=== PATIENT | female | born 1970 | race Caucasian/White ===

== ENCOUNTER 2016-10-21 21:20 | Emergency (ER) ==
[2016-10-21] MEDS ORDERED: PHENERGAN IM ONE (22:03)
[2016-10-21] MEDS ORDERED: NUBAIN IM ONE (22:05)
--- NOTE | 2016-10-21 22:11 | PROVIDER DOCUMENTATION ---
HPI-Headache - General Source: patient - History of Present Illness-Headache Headache Location: reports: occipital Quality of Pain: reports: aching Severity: reports: moderate Onset/Duration: reports: this afternoon Timing: reports: still present Headache severity at the maximum: worst of life Headache Exacerbated by:: reports: nothing Associated Symptoms: reports: headache, nausea, vomiting Similar Symptoms Previously?: No Recently seen or treated by another doctor?: No <Althea Sanches - Last Filed: 10/21/16 22:19> <Hong Sosa - Last Filed: 10/21/16 22:58> - General Chief Complaint: Headache Stated Complaint: OWENS, VOMITING Time Seen by Provider: 10/21/16 21:53 Allergies/Adverse Reactions: Patient Allergies Allergy/AdvReac Type Severity Reaction Status Date / Time ibuprofen [From Advil] AdvReac SWELLING Verified 10/21/16 21:31 Home Medications: Home Medication List Medication Instructions Recorded Confirmed Last Taken Type Cetirizine HCl [Zyrtec] 10 mg PO DAILY 10/21/16 10/21/16 10/20/16 History Esomeprazole Magnesium [Nexium] 40 mg PO DAILY 10/21/16 10/21/16 10/20/16 History - History of Present Illness-Headache Nature of Presenting Problem: 45 year old F presents to the ED with a cc of a headache with an onset of 1400. PT states that she too one 200 mg Ibuprofen with no relief. PT states that the headache became worse with nausea and vomiting. PT states that she has vomited at least 20 times. (Althea Sanches) Review of Systems - Adult - REVIEW OF SYSTEMS - ADULT Constitutional: denies: chills, fever Eyes: reports: no symptoms reported Ears, Nose, Mouth & Throat: reports: no symptoms reported Cardiovascular: reports: no symptoms reported Respiratory: reports: no symptoms reported Gastrointestinal: reports: nausea, vomiting. denies: abdominal pain Genitourinary: reports: no symptoms reported Musculoskeletal: reports: no symptoms reported Integumentary: reports: no symptoms reported Neurological: reports: headache/migraines. denies: dizziness/vertigo Psychiatric: reports: no symptoms reported Endocrine: reports: no symptoms reported Hematologic/Lymphatic: reports: no symptoms reported Allergic/Immunologic: reports: no symptoms reported All Other Systems: Reviewed and Negative <Althea Sanches - Last Filed: 10/21/16 22:19> Past History - Adult - PAST MEDICAL HISTORY-ADULT Review of Records: reports: Nursing Assessment Review, Medications Reviewed Major Childhood Illnesses: reports: denies history Psychiatric: reports: depression - PRIOR SURGERIES/PROCEDURES Surgical/Procedure History: reports: EGD, colonoscopy - IMMUNIZATION STATUS Childhood Immunizations: See Nurse Assessment Flu Vaccine: See Nurse Assessment - SOCIAL HISTORY Smoking: non-smoker Substance Use: none/never Alcohol Use Frequency: never <MyronAlthea - Last Filed: 10/21/16 22:19> Physical Exam- Neurological - Physical Exam-Neuro Initial Vital Signs Reviewed: Yes General Appearance: appears well, alert, no apparent distress Head Injury: no evidence of injury Respiratory: chest non-tender, lungs clear, normal breath sounds Cardiovascular: normal peripheral pulses, regular rate, rhythm, no edema 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: normal 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 Exam: normal hearing, normal speech, PERRL Motor/Sensory: no motor deficit, no sensory deficit, no pronator drift (-) Neurologic: tester armature or fields II-XII nml as tested, no motor/sensory deficits Integumentary: normal color, normal turgor, warm/dry Psych/Mental Status: normal mood/affect, normal thought content, normal thought process, oriented x 3 <Althea Sanches - Last Filed: 10/21/16 22:19> Progress <Althea Sanches - Last Filed: 10/21/16 22:19> - CT/MRI 1 CT Study: Head CT Results: nad (rad) <Hong Sosa - Last Filed: 10/21/16 22:58> - PLAN OF CARE/RESULTS Progress/Plan/Lab Results: Orders Category Date Time Status HEAD W/O CONTRAST [CT] Stat Exams 10/21/16 22:07 Taken Nalbuphine [Nubain] Med 10/21/16 22:05 Discontinued 10 mg IM NOW ONE Promethazine [Phenergan] Med 10/21/16 22:03 Discontinued 25 mg IM NOW ONE Vital Signs - 24 hr 10/21/16 21:22 Temperature 97.6 F Pulse Rate 74 Respiratory 18 Rate Blood Pressure 144/95 O2 Sat by Pulse 100 Oximetry (Hong Sosa) Departure <Althea Sanches - Last Filed: 10/21/16 22:19> - Departure Time of Disposition Order: 22:57 Certified Medical Emergency: Emergent <Hong Sosa - Last Filed: 10/21/16 22:58> - Departure DIAGNOSIS: Migraine Qualifiers: Migraine type: without aura Status migrainosus presence: without status migrainosus Intractability: not intractable Qualified Code(s): G43.009 - Migraine without aura, not intractable, without status migrainosus Disposition: HOME 01 Condition: Good Additional Instructions: follow up with PCP ED Follow Up Instructions: You have been treated by a care provider in the Emergency Department. These instructions are being provided to you so you can have an understanding of how to care for yourself upon discharge. Upon discharge from the Emergency Department, you are responsible for making arrangements for follow-up care by a physician of your choice. Take all prescribed medications as directed. Return to the Emergency Department immediately for any new or worsening symptoms. You may call the Physician Referral phone number at [phone] to obtain a list of Physicians who are taking new patients. Referrals: None,PCP [Primary Care Provider] - Attestation - Scribe Verification/Attestation Scribe:: Althea Sanches Acting as Scribe for:: Hong Sosa Scribe documention review:: This chart was documented by a scribe and accurately reflects the service the provider performed and the decisions made by the provider. <Althea Sanches - Last Filed: 10/21/16 22:19> - Physician/ NAVDEEP Attestation Patient care was provided by Advanced Practice Provider:: Yes Advanced Practice Provider:: Hong Sosa Advanced Practice Provider documentation review:: The Mid-level provider documentation, treatment plan and medical decision making was reviewed by the physician who agrees with all treatment and medical decision making by the MLP. <Hong Sosa - Last Filed: 10/21/16 22:58> Physician Attestation - Physician Attestation I, the provider, attest to the following statement:: Hong Sosa Physician documentation Attestation:: This documentation recorded by the scribe accurately reflects the service I personally performed and the decisions made by me. <Myron,Althea - Last Filed: 10/21/16 22:19> - Physician Attestation I, the provider, attest to the following statement:: Hong Sosa Physician documentation Attestation:: This documentation recorded by the scribe accurately reflects the service I personally performed and the decisions made by me. <Hong Sosa - Last Filed: 10/21/16 22:58>
[2016-10-21 23:12] VITALS: BP 137/74
--- NOTE | 2016-10-21 23:47 | Diag Imaging Result Document ---
PROCEDURE NAME: HEAD W/O CONTRAST - 10/21/2016 CT BRAIN WITHOUT CONTRAST. DOSE REDUCTION PROTOCOL. COMPARISON: No comparison films. FINDINGS: No parenchymal hemorrhage. No epidural or subdural hematoma. No subarachnoid hemorrhage. No mass identified on this noncontrasted exam. No hydrocephalus. No sinus opacification. No air fluid levels. IMPRESSION: No hemorrhage. Negative brain CT without contrast. A preliminary report was given at 10:53 p.m..
== END 2016-10-21 23:16 | disposition home or self-care (01) ==
LOC: ED 21:20
DX: G43.009 Migraine without aura, not intractable, without status migrainosus (principal); R51 Headache; R11.2 Nausea with vomiting, unspecified
CPT/HCPCS: 70450; J2300; J2550